=== PATIENT | male | born 1940 | race Caucasian/White ===

== ENCOUNTER 2016-07-01 06:20 | Day surgery (SDC) | payer OTHER ==
[~2016-07-01] VITALS: Ht 182.9 cm; Wt 122.1 kg
[~2016-07-01 06:20] MED LIST: AMOX500T2 PO; ASPI81TA82 PO; BENI40TA30 PO; FISH120014 PO; GUAI600 PO; LEVO75TA3 PO; PHEN100 PO; ROSU40 PO; TAB-TAB PO; VITA-13 PO
[2016-07-01 07:01] VITALS: BP 156/79; PULSE 66; RESP 18; TEMP 98.2; O2SAT 97
[2016-07-01] MEDS ORDERED: COQ1200C PO (07:10)
[2016-07-01] MEDS ORDERED: LEVO75TA3 PO (07:10)
[2016-07-01] MEDS ORDERED: [UNRECOGNIZED DRUG - CODE] PO (07:10)
[2016-07-01] MEDS ORDERED: MULT1TAB84 PO (07:10)
[2016-07-01] MEDS ORDERED: BENI40TA3 PO (07:10)
[2016-07-01] MEDS ORDERED: FISH1000 PO (07:10)
[2016-07-01] MEDS ORDERED: ROSU1TAB8 PO (07:10)
[2016-07-01] MEDS ORDERED: OCUVTAB PO (07:10)
[2016-07-01] MEDS ORDERED: ASPI1TAB69 PO (07:10)
[2016-07-01] MEDS ORDERED: SODIUM CHLORID 0.9% 500 ML IV PRN (07:15)
[2016-07-01] MEDS ORDERED: LACTATED RINGER'S 1000 ML IV PRN (07:15)
[2016-07-01] MEDS ORDERED: SODIUM CHLORID 0.9% 500 ML INJ 500 ML IV SCH (07:15)
[2016-07-01] MEDS ORDERED: CHLORHEXIDINE GLUCONATE 2 % 1 PACK (2 CLOTHS) TOPICAL PRN (07:15)
[2016-07-01] MEDS ORDERED: INSULIN HUMAN REGULAR 1,000 UNITS/10 ML VIAL SQ PRN (07:15)
[2016-07-01] MEDS ORDERED: LORazepam 1 MG TAB SL SCH (07:15)
[2016-07-01] MEDS ORDERED: METOPROLOL TARTRATE 25 MG TAB PO PRN (07:15)
[2016-07-01] MEDS ORDERED: POVIDONE IODINE 5% (ANTISEPSIS KIT) 4 APPLICATIONS EACH NARE PRN (07:15)
[2016-07-01] MEDS ORDERED: ISOPROTERENOL HCL 1 MG/5 ML AMP ONE (07:30)
[2016-07-01] MEDS ORDERED: MIDAZOLAM HCL 2 MG/2 ML VIAL ONE (07:31)
[2016-07-01 08:31] LABS: AUTOMATED NEUTROPHIL # 3.4 TH/MM3 (1.8-7.7); BASOPHIL # 0.1 TH/MM3 (0-0.2); BASOPHIL % 1.1 % (0.0-2.0); EOSINOPHIL # 0.2 TH/MM3 (0-0.4); EOSINOPHIL % 3.7 % (0.0-4.0); HEMATOCRIT 39.1 % (39.0-51.0); HEMO FLAGS DIFF FINAL; LYMPH % 29.7 % (9.0-44.0); MEAN CELL VOLUME 91.3 FL (80.0-100.0); MEAN CORPUSCULAR HEMOGLOBIN 31.7 PG (27.0-34.0); MEAN CORPUSCULAR HGB CONC 34.7 % (32.0-36.0); MONO % 14.5 % (0.0-8.0); PLATELET COUNT 143 TH/MM3 (150-450); RED BLOOD COUNT 4.28 MIL/MM3 (4.50-5.90); RED CELL DISTRIBUTION WIDTH 13.9 % (11.6-17.2); WHITE BLOOD COUNT 6.7 TH/MM3 (4.0-11.0)
[2016-07-01 08:39] LABS: BICARBONATE 24.3 MEQ/L (21.0-32.0)
[2016-07-01] MEDS ORDERED: METOPROLOL TARTRATE 5 MG/5 ML VIAL ONE (08:39)
[2016-07-01 08:42] LABS: APTT (PATIENT) 27.5 SEC (24.3-30.1); PROTHROMBIN TIME - PATIENT 10.5 SEC (9.8-11.6)
[2016-07-01] MEDS ORDERED: APIX5TAB PO (08:57)
[2016-07-01] MEDS ORDERED: LIDOCAINE HCL 1% 50 ML VIAL INFIL PRN (09:00)
[2016-07-01] MEDS ORDERED: METOCLOPRAMIDE HCL 10 MG/2 ML VIAL IV PRN (09:00)
[2016-07-01] MEDS ORDERED: NON-FORMULARY DRUG (Omega-3 Fatty Acids (Fish Oil) 1,000 MG) PO SCH (09:00)
[2016-07-01] MEDS ORDERED: ATROPINE SULFATE 1 MG/ML VIAL IV PRN (09:00)
[2016-07-01] MEDS ORDERED: SODIUM CHLOR 0.9% 250 ML INJ 250 ML IV PRN (09:00)
[2016-07-01] MEDS ORDERED: LORazepam 2 MG/ML VIAL IV PRN (09:00)
[2016-07-01] MEDS ORDERED: NON-FORMULARY DRUG (Coenzyme Q10 (Ubidecarenone) (Coq10) 200 MG) PO SCH (09:00)
[2016-07-01] MEDS ORDERED: oxyCODONE/ACETAMINOPHEN 5 MG/325 MG TAB PO PRN ×2 (09:00)
[2016-07-01] MEDS ORDERED: ONDANSETRON HCL 4 MG/2 ML VIAL IV PRN (09:00)
--- NOTE | 2016-07-01 09:51 | MA ---
cc: RUPERT DESAI M.D. DATE: 07/01/2016 PROCEDURE PERFORMED Electrophysiology study, CS cannulation, repeat electrophysiology study on Isuprel infusion. INDICATION Mr. Carolina is a 75-year-old gentleman with recurrent episode of supraventricular tachyarrhythmia, palpitations, symptomatic, referred for electrophysiology study and ablation. The risks, the nature and the benefit of the procedure are clearly stated to him. The risks include pneumothorax, cardiac perforation, stroke, need for open heart surgery and even . The patient understood and agreed to proceed. PROCEDURE After written informed consent was obtained, the patient was brought to the EP lab where he was prepped and draped in the usual sterile fashion. Conscious sedation was initiated and maintained throughout the procedure by anesthesiologist. Once sedation was verified, the right and left inguinal area was anesthetized with 2% Xylocaine. Using modified Seldinger technique, the left femoral vein was cannulated on three occasions, three guidewires were advanced. Over the wire three 5-Ghanaian Hemaquet were advanced. Then the right femoral vein was cannulated on two occasions, two guidewires were advanced. Over the wires 6 and an 8-Ghanaian Hemaquet were advanced. Then under fluoroscopic guidance through 5 and 6-Ghanaian Hemaquet, four 5-Ghanaian Camron curved quadripolar electrophysiology catheters were advanced was placed around the His, upper right atrium, coronary sinus and right ventricular apex. Basic interval was measured, they were within normal limits. At this point atrial pacing protocol was performed. Atrial pacing protocol consists of incremental atrial pacing as well as program stimulation with 110 cycle length and up to 20 excess stimuli delivered. During atrial pacing protocol atrial fibrillation was induced. Also supraventricular tachyarrhythmia of intracardiac arteries of atrial tachycardia, possible pulmonary vein tachyarrhythmia was induced. He was paced terminated. Then ventricular pacing protocol was performed. There was VA conduction. It was concentric and prolonged. Then Isuprel infusion was initiated. Atrial pacing protocol was repeated again. During Isuprel infusion the patient went into atrial fibrillation on multiple occasion. At that point the procedure was complete. All catheters were removed. The patient has atrial fibrillation, pulmonary vein tachyarrhythmia, he also has sleep apnea, obesity, a high blood pressure over 74. At this point the patient will need anticoagulation before atrial fibrillation ablation and pulmonary vein isolation. No incident report. The patient tolerated the procedure. Blood loss was minimal. 1. Electrocardiogram. At baseline the patient was in sinus. Postprocedure electrocardiogram was unchanged. 2. Basic interval. Base cycle length was around 780. AH at 100 and HV around 60 milliseconds. 3. Atrial pacing protocol. Wenckebach of the node was around 420 milliseconds. ERP of the node cannot be reached because the patient went on and off into atrial fibrillation. 4. Ventricular pacing protocol. There was VA conduction, it was concentric. CONCLUSION Atrial fibrillation, pulmonary vein tachyarrhythmia. COMMENT AND RECOMMENDATION As mentioned before, the gentleman is going to be discharged home. Eliquis will be initiated. The patient will be anticoagulated and A_ ablation will be scheduled for another day. MD JARROD Mckeon/TLL /9:01 AM /9:29 AM
[2016-07-01] MEDS ORDERED: LEVOTHYROXINE SODIUM 75 MCG TAB PO SCH (12:00)
[2016-07-01] MEDS ORDERED: BACITRACIN OINT 0.9 GM PKT TOP ONE (12:00)
[2016-07-01] MEDS ORDERED: ASPIRIN EC 81 MG TABEC PO SCH (12:00)
[2016-07-01] MEDS ORDERED: MULTIVITAMIN-OPHTHALMIC 1 TAB PO SCH (12:15)
[2016-07-01] MEDS ORDERED: MULTIVITAMINS/MINERALS THERAPEUTIC TAB PO SCH (12:15)
[2016-07-01] MEDS ORDERED: LOSARTAN 50 MG TAB PO SCH (13:00)
[2016-07-01] MEDS ORDERED: NIACIN 500 MG EXTENDED RELEASE TAB PO SCH (13:00)
[2016-07-01] MEDS ORDERED: ATORVASTATIN 40 MG TAB PO SCH (13:00)
--- NOTE | 2016-07-01 16:01 | EKG ---
Date Performed: 07/01/2016 Time Performed: 10:18:44 PTAGE: 75 years EKG: Probable Atrial fibrillation. Poor R wave progression - probable normal variant Abnormal EC G COMPARED TO PRIOR ELECTROCARDIOGRAM, Probable atrial fibrillation appears to have replaced Sinus rh ythm . PREVIOUS TRACING : 07/01/2016 07.21 DOCTOR: Moody Rice Interpretating Date/Time 07/01/2016 15:59:35
--- NOTE | 2016-07-01 16:05 | EKG ---
Date Performed: 07/01/2016 Time Performed: 07:15:28 PTAGE: 75 years EKG: Sinus rhythm . Poor R wave progression - probable normal variant Borderline ECG NO PREVIOUS TRACING DOCTOR: Moody Rice Interpretating Date/Time 07/01/2016 16:03:45
== END 2016-07-01 12:22 | disposition home or self-care (01) ==
LOC: HDOC 06:20 → HDIC 06:21 → HDOC 12:22
PROVIDERS: ATTEND Internal Medicine Interventional Cardiology
DX: I48.91 Unspecified atrial fibrillation (principal); I47.1 Supraventricular tachycardia; I25.10 Atherosclerotic heart disease of native coronary artery without angina pectoris; I10 Essential (primary) hypertension
CPT/HCPCS: 00537; 80048; 85025; 85610; 85730; 86850; 86900; 86901; 93005; 93613; 93620; 93623; C1730; C1732; J2250; J3010

== ENCOUNTER 2016-07-15 06:56 | Day surgery (SDC) | payer OTHER ==
[2016-07-15] VITALS (9 sets, daily range): BP systolic 120–152; BP diastolic 56–79; PULSE 18–85; RESP 17–20; TEMP 97.8–98.7; O2SAT 95–97
[~2016-07-15] VITALS: Ht 182.9 cm; Wt 116.6 kg
[~2016-07-15 06:56] MED LIST changes: -AMOX500T2 PO; +APIX5TAB PO; -ASPI81TA82 PO; +BENI40TA3 PO; -BENI40TA30 PO; +COQ1200C PO; +FISH1000 PO; -FISH120014 PO; -GUAI600 PO; +MULT1TAB84 PO; +OCUVTAB PO; -PHEN100 PO; +ROSU1TAB8 PO; -ROSU40 PO; -TAB-TAB PO; -VITA-13 PO; +[UNRECOGNIZED DRUG - CODE] PO
[2016-07-15] MEDS ORDERED: INSULIN HUMAN REGULAR 1,000 UNITS/10 ML VIAL SQ PRN (07:30)
[2016-07-15] MEDS ORDERED: METOPROLOL TARTRATE 25 MG TAB PO PRN (07:30)
[2016-07-15] MEDS ORDERED: POVIDONE IODINE 5% (ANTISEPSIS KIT) 4 APPLICATIONS EACH NARE PRN (07:30)
[2016-07-15] MEDS ORDERED: CHLORHEXIDINE GLUCONATE 2 % 1 PACK (2 CLOTHS) TOPICAL PRN (07:30)
[2016-07-15] MEDS ORDERED: LACTATED RINGER'S 1000 ML IV PRN (07:30)
[2016-07-15] MEDS ORDERED: SODIUM CHLORID 0.9% 500 ML IV PRN (07:30)
[2016-07-15] MEDS ORDERED: SODIUM CHLORID 0.9% 500 ML INJ 500 ML IV SCH (07:30)
[2016-07-15] MEDS ORDERED: LORazepam 1 MG TAB SL SCH (07:30)
[2016-07-15] MEDS ORDERED: ASPI1TAB69 PO (08:10)
[2016-07-15 08:25] LABS: AUTOMATED NEUTROPHIL # 5.1 TH/MM3 (1.8-7.7); BASOPHIL % 0.4 % (0.0-2.0); EOSINOPHIL % 0.6 % (0.0-4.0); HEMATOCRIT 39.6 % (39.0-51.0); HEMO FLAGS DIFF FINAL; LYMPH % 26.6 % (9.0-44.0); LYMPHOCYTE # 2.3 TH/MM3 (1.0-4.8); MEAN CELL VOLUME 91.2 FL (80.0-100.0); MEAN CORPUSCULAR HEMOGLOBIN 31.1 PG (27.0-34.0); MEAN CORPUSCULAR HGB CONC 34.1 % (32.0-36.0); NEUT % 59.4 % (16.0-70.0); PLATELET COUNT 221 TH/MM3 (150-450); RED BLOOD COUNT 4.34 MIL/MM3 (4.50-5.90); RED CELL DISTRIBUTION WIDTH 13.8 % (11.6-17.2); WHITE BLOOD COUNT 8.6 TH/MM3 (4.0-11.0)
[2016-07-15 08:32] LABS: PROTHROMBIN TIME - PATIENT 10.9 SEC (9.8-11.6)
[2016-07-15 08:35] LABS: APTT (PATIENT) 22.4 SEC (24.3-30.1)
[2016-07-15 08:42] LABS: BICARBONATE 22.4 MEQ/L (21.0-32.0); POTASSIUM 3.8 MEQ/L (3.5-5.1)
[2016-07-15] MEDS ORDERED: PROPOFOL 200 MG/20 ML AMP IV ONE (09:16)
[2016-07-15] MEDS ORDERED: PROTAMINE SULFATE 50 MG/5 ML VIAL ONE (09:20)
[2016-07-15] MEDS ORDERED: ISOPROTERENOL HCL 1 MG/5 ML AMP ONE (09:20)
[2016-07-15] MEDS ORDERED: HEPARIN-D5W INJ 250 ML ONE (09:20)
[2016-07-15] MEDS ORDERED: fentaNYL CITRATE 250 MCG/5 ML AMP ONE ×2 (09:20→12:50)
[2016-07-15] MEDS ORDERED: HEPARIN SODIUM - IV 10,000 UNITS/10 ML VIAL ONE (09:21)
[2016-07-15] MEDS ORDERED: LEVOFLOXACIN 500 MG PREMIX INJ 100 ML IV ONE (09:25)
[2016-07-15] MEDS ORDERED: HEPARIN-NS/PF INJ 500 ML ONE (09:32)
--- NOTE | 2016-07-15 12:14 | PD.CARD ---
Atrial Fibrillation Ablation PROCEDURE DATE: July 15, 2016 PROCEDURES PERFORMED: 1. Electrophysiology study on Isuprel infusion 2. CS cannulation 3. 3-D mapping 4. Transseptal approach 5. Right and left heart catheterization 6. Intracardiac echo 7. Radiofrequency ablation of atrial fibrillation 8. Pulmonary vein isolation 9. Posterior wall ablation 10. Mitral line creation 11. Anterior wall ablation INDICATIONS FOR THE PROCEDURE Mr. Carolina is a 75-year-old male with atrial fibrillation very symptomatic, on anticoagulation referred for electrophysiology study and ablation. The risks, the nature and the benefits of the procedure were clearly stated to him. The risks include pneumothorax, cardiac perforation, stroke, need for open heart surgery and even . The patient understood and agreed to proceed. DESCRIPTION OF THE PROCEDURE IN DETAIL After written informed consent was obtained prior to esophageal echocardiogram, the patient was kept on the table where he was prepped and draped in the usual sterile fashion. Conscious sedation was initiated and maintained throughout the procedure by the anesthesiologist. Once sedation was verified, the right and left inguinal areas were anesthetized with 2% Xylocaine. Using modified Seldinger technique, the left femoral vein was cannulated on three occasions, three guidewires were advanced. Over the wire a 6, 7 and a 10-[place] Hemaquet were advanced. Then the left femoral artery was cannulated on one occasion, one guidewire was advanced. Over the wire a 4-[place] Hemaquet was advanced. Then the right femoral vein was cannulated on one occasion, one guidewire was advanced. Over the wire a 8-[place] Hemaquet was advanced. Then under fluoroscopic guidance through the 6 and 7-[place] Hemaquet, two 5-[place] Camron curved quadripolar electrophysiology catheters were advanced and placed around the His as well as coronary sinus. Basic interval was measured. The patient was in sinus. Through the 10-[place] Hemaquet, a Cordis Wright AcuNav intracardiac echo catheter was advanced and placed at the right atrium. Multiple view was obtained. There is pericardial effusion, pulmonary vein was seen, atrial septal was visualized. Then the 8-[place] Hemaquet in the right femoral vein was exchanged for Agilis transseptal sheath that was placed all the way to the superior vena cava. Through the sheath a Edita needle was advanced, then the sheath, the dilator and the needle were progressed until foci engaged. Once engaged, the needle was advanced. RF was delivered for 2 seconds. I was able to cross into the left atrium. Once the needle crossed, the dilator was advanced. Once the dilator crossed, the sheath was advanced. Once the sheath crossed, the dilator and the needle were removed. At this point I did flood the system and fluid movement was seen in the left atrium the indicates the sheath is in good position. The patient already received 10,000 units of heparin. The goal is to keep an ACT around 350 during ablation. Then through the sheath a [facility]. Tadeo 20 pulse circumferential catheter was advanced. Using [employer] endocardial solution mapping system, a two-dimensional configuration of the left atrium was obtained. Points were taken at the left superior and inferior veins, right superior and inferior veins, mitral valve, and appendages. Then through the sheath a St. Tadeo TactiCath 65cm 3.5mm irrigated tipped mapping and radiofrequency ablation catheter was advanced. Esophageal probe was placed temperature monitoring during ablation. When it increased to 0.5 degrees Celsius above baseline, I moved to a different area of the atrium. First I did isolate the left superior and inferior vein. Posterior wall was ablated. lateral wall was ablated. Mitral line was created. Then the right superior and inferior veins were isolated. Anterior wall was ablated. I did remap the atrium. At that point I did advance the circumferential catheter again into the vein. There was no signal into the vein , pacing from the vein showed no conduction to the atrium. Isuprel infusion was initiated at 10 mcg for 15 minutes. No tachyarrhythmia was induced, post Isuprel no tachyarrhythmia was induced. At that point the procedure was complete. All catheters were removed, atrial septal sheath was exchanged for 9- [place] Hemaquet, intracardiac echo showed no pericardial effusion. There is still good flow in the pulmonary vein. The patient is going to be transferred to the recovery room. No incident report. The patient tolerated the procedure. Blood loss was minimal. FINDINGS 1. Electrocardiogram: At baseline the patient was in sinus rhythm. Post procedure electrocardiogram was unchanged. 2. Basic interval: Base cycle length was around 722. AH at 80 and HV at 62 milliseconds. 3. Tachyarrhythmia: Atrial fibrillation was mapped and ablated. The ablation was successful. CONCLUSION Successful electrophysiology study, mapping, radiofrequency ablation of atrial fibrillation, pulmonary vein isolation, posterior ablation, mitral line creation. COMMENTS AND RECOMMENDATIONS The patient is going to be transferred to the telemetry unit. Will be observed and when stable can be discharged home. Adri Albrecht MD July 15, 2016 12:14
[2016-07-15] MEDS ORDERED: SODIUM CHLOR 0.9% 250 ML INJ 250 ML IV PRN (12:15)
[2016-07-15] MEDS ORDERED: ONDANSETRON HCL 4 MG/2 ML VIAL IV PRN (12:15)
[2016-07-15] MEDS ORDERED: BACITRACIN OINT 0.9 GM PKT TOP ONE (12:15)
[2016-07-15] MEDS ORDERED: LIDOCAINE HCL 1% 50 ML VIAL INFIL PRN (12:15)
[2016-07-15] MEDS ORDERED: oxyCODONE/ACETAMINOPHEN 5 MG/325 MG TAB PO PRN ×2 (12:15)
[2016-07-15] MEDS ORDERED: ATROPINE SULFATE 1 MG/ML VIAL IV PRN (12:15)
[2016-07-15] MEDS ORDERED: LORazepam 2 MG/ML VIAL IV PRN (12:15)
[2016-07-15] MEDS ORDERED: METOCLOPRAMIDE HCL 10 MG/2 ML VIAL IV PRN (12:15)
[2016-07-15] MEDS ORDERED: DO NOT ADM ANY ANTICOAGULANT DRUGS PRN (12:32)
[2016-07-15] MEDS ORDERED: MORPHINE SULFATE 4 MG/ML INJ ONE (12:50)
[2016-07-15] MEDS ORDERED: BACITRACIN TOP OINT 15 GM TUBE ONE (12:53)
--- NOTE | 2016-07-15 14:30 | CATHPROC ---
Cnekt HIS Report Study Information Study Number Admission Scheduled Start Study Start [id number] 07/15/2016 07/15/2016 Jul 15 2016 8:47AM Referring Institution Admit Source Facility Department 1 Other [facility] - Customer Equipment Engineer Physician and Clinical Staff Initial Adri South Archery Instructor Bonnie Loredo RCIS Archery Instructor Joana Coelho,GENERAL HELPER TECH2 Other Sarita Stallworth,INES Other Anesthesia, RETAIL EQUIPMENT ASSOCIATE Recorder Sole Henry RN Recorder Sarita Stallworth,INES Scrub Alexey Salgado,RT(R) Procedures Performed Procedure Location (Site) Vessel Name Ablation Procedure ICE CATHETER INSERT RA Atruim RF Ablation LT. ATRIUM LT. ATRIUM Equipment Time Stemhole Borer And Topper Description Size Mfg Part Number Used/Scraped NEEDLE, TRANSSEPTAL NRG 98 10:09 [facility] [id number] Used C1 [employer]/ EP 10:09 KIT, TRANSDUCER / AFIB [id number] Used PACER COVER, TRANSDUCER CABLE 10:09 [employer] 612-113 Used ACUNAV 10:09 CORDIS/PACER SHEATH, FR10 JEAN 11CM FR 10 [id number] Used 10:09 CORDIS/PACER SHEATH, FR9 JEAN 11CM FR 9 [id number] Used 10:09 [employer]ES PACK, CCL CUSTOM * [id number] Used 10:09 [employer] PACER MORILLO, LIMB * [id number] Used [id number] 10:09 [employer] MEDICAL SHEATH, FR4.5 PRELUDE 11CM FR 4.5 Used [id number] 10:09 NAMIC TUBING, HIGH PRESSURE 48" 48" [id number] Used 10:09 NAMIC TUBING, HIGH PRESSURE 48" 48" [id number] Used 10:10 NAMIC TUBING, HIGH PRESSURE 48" 48" [id number] Used 10:09 [employer] BL[employer],WARM AIR CCL * [id number] Used CATHETER, TACTICATH ABLAT [id number] 10:09 [facility] [employer] [employer] Used 65 BUNDLE BUNDLE CATHETER, FR7 OPTIMA SPIRAL 10:09 [facility] FR7 [id number] Used BUNDLE 10:19 [facility] CATHETER, JSN, QUAD BUNDLE FR 5 [id number] Used 10:19 [facility] [employer] CATHETER, JSN, QUAD BUNDLE FR 5 [id number] Used 10:37 [facility] CATHETER, JSN, QUAD BUNDLE FR 5 [id number] Used 10:09 [facility] [employer] CATHETER, JSN, QUAD BUNDLE FR 5 [id number] Used 10:09 [facility] [employer] CATHETER, JSN, QUAD BUNDLE FR 5 [id number] Used 10:09 [facility] [employer] ELECTRODE KIT, NOMI X SURFACE * [id number] Used 10:28 [facility] [employer] LIVEWIRE, QUAD, MED SWEEP FR 6 [id number] Used SET, [place] TUBING 10:09 [facility] [employer] [id number] Used BUNDLE 10:09 [facility] [employer] SHEATH, EPS, FR6 FAST CATH FR 6 [id number] Used 10:09 [facility] [employer] SHEATH, EPS, FR7 FAST CATH FR 7 [id number] Used 10:09 [facility] SHEATH, EPS, FR8 FAST CATH FR 8 [id number] Used SHEATH, FR8.5 STEERABLE SM 10:09 [facility] 71CM [id number] Used 71CM BUNDLE CATHETER, ACUNAV FR10 ICE 10:18 NADEEM FR 10 [id number] Used (NADEEM) [facility], ELECTROSURGICAL 10:09 * [id number] Used SURGICAL GROUNDING (BLUE) Labs Hgb (g/dl) Hct (%) RBC (MIL/MM3) WBC (l/cumm) Platelets (thousands) 12.00-18.00 37.00-55.00 4.80-6.20 4.80-10.80 140.00-450.00 13.5 39.6 4.3 8.6 221 Glucose (mg/dl) BUN (mg/dl) Creatinine (mg/dl) BUN:Creatinine (1:x) 60.00-110.00 8.00-20.00 0.10-9.00 10.00-20.00 90 38 1.3 29.2 Na (meq/l) K (meq/l) 138.00-146.00 3.80-5.10 141 3.8 INR (PTT:PT) 0.50-2.00 1 Medication Medication Total Dose (Bolus/Oral) Medication Total Dosage/Unit 1% XYLOCAINE 40 mL HEPARIN 00301 units LASIX 40 mg PROTAMINE 40 mg Medications (Bolus/Oral) Medication Time Given Dosage/Unit Administered By Reason 1% XYLOCAINE 07/15/2016 10:09:24 AM 20 mL Adri Albrecht 20 mL 1% XYLOCAINE given in lab by Adri Albrecht in Left Groin via Subcutaneous. Ordered by Junior Albrecht 1% XYLOCAINE 07/15/2016 10:12:38 AM 20 mL Adri Albrecht 20 mL 1% XYLOCAINE given in lab by Adri Albrecht in Right Groin via Subcutaneous. Ordered by Deja Albrecht. HEPARIN 07/15/2016 10:37:28 AM 5000 units Anesthesia, RETAIL EQUIPMENT ASSOCIATE 5000 units HEPARIN given in lab by Anesthesia, RETAIL EQUIPMENT ASSOCIATE via Peripheral IV. Ordered by Adri Albrecht. HEPARIN 07/15/2016 10:55:19 AM 1000 units Anesthesia, RETAIL EQUIPMENT ASSOCIATE 1000 units HEPARIN given in lab by Anesthesia, RETAIL EQUIPMENT ASSOCIATE via Peripheral IV. Ordered by Adri Albrecht. HEPARIN 07/15/2016 11:12:58 AM 2000 units Anesthesia, RETAIL EQUIPMENT ASSOCIATE 2000 units HEPARIN given in lab by Anesthesia, RETAIL EQUIPMENT ASSOCIATE via Peripheral IV. Ordered by Adri Albrecht. HEPARIN 07/15/2016 11:28:48 AM 3000 units Anesthesia, RETAIL EQUIPMENT ASSOCIATE 3000 units HEPARIN given in lab by Anesthesia, RETAIL EQUIPMENT ASSOCIATE via Peripheral IV. Ordered by Adri Albrecht. PROTAMINE 07/15/2016 12:06:59 PM 40 mg Anesthesia, RETAIL EQUIPMENT ASSOCIATE 40 mg PROTAMINE given in lab by Anesthesia, RETAIL EQUIPMENT ASSOCIATE. Ordered by Adri Albrecht. LASIX 07/15/2016 12:07:18 PM 40 mg Anesthesia, RETAIL EQUIPMENT ASSOCIATE 40 mg LASIX given in lab by Anesthesia, RETAIL EQUIPMENT ASSOCIATE via Peripheral IV. Ordered by Adri Albrecht. Medication (Drip) Medication Time Given Dosage/Unit Concentration/Unit Diluent (ml) Solution HEPARIN DRIP 07/15/2016 10:56:36 AM 1000 units/hr 33257 units 250 D5W 1000 units/hr HEPARIN DRIP given in lab by Anesthesia, RETAIL EQUIPMENT ASSOCIATE via Peripheral IV. Pump/Drip Flow = 10 ml /hr using D5[place] [address] units in 250 ml. Ordered by Adri Albrecht. ISUPREL 07/15/2016 11:48:12 AM 20 mcg/min 1 mg 250 NaCl .9 20 mcg/min ISUPREL given in lab by Anesthesia, RETAIL EQUIPMENT ASSOCIATE via Peripheral IV. Pump/Drip Flow = 300 ml/hr usi ng NaCl .9 with a concentration of 1 mg in 250 ml. Ordered by Adri Albrecht. LEVAQUIN 07/15/2016 9:44:52 AM 100 mL/hr 500 100 NaCl .9 100 mL/hr LEVAQUIN given by Anesthesia, RETAIL EQUIPMENT ASSOCIATE via Peripheral IV. Pump/Drip Flow = 0 ml/hr using NaCl . 9 with a concentration of 500 in 100 ml. Initial Case Assessment Cardiovascular HR Rhythm NIBP Chest Pain 63 SR 113/75 0 Edema Present Skin color Skin None Normal Warm Dry Final Case Assessment Cardiovascular HR Rhythm NIBP Chest Pain 92 sr 129/58 0 Edema Present Skin color Skin None Normal Warm Dry Neurological State Oriented to time-place- Lethargic Moves all extremities person Respiration - General Respiration Rate SpO2 (%) O2 (lpm) (B/min) 16 97 4 Chronological Log Time Study Chronological Log 9:16:08 Patient arrived via Bed. 9:16:08 Patient Name, D.O.B, / Armband Verified By R.N. 9:22:50 Consent signed by the physician and the patient and verified by the Customer Equipment Engineer staff. 9:22:51 Pre-op and post- op instructions given; patient acknowledges understanding of instructions. 9:22:52 Verbal Stimulation=2 Physical Stimulation=2 Airway=2 Respiration=2 TOTAL=8. (0=absent, 1=li mited, 2=present) 9:22:53 Anesthesia at bedside. Assumes care of patient. 9:22:55 Patient has been NPO for More than 6Hrs. 9:22:55 Skin Breakdown, none noted per pt. 9:22:56 Patient Warmer Placed on the Table. 9:22:57 Disposable Defibrillator Pads Placed On Patient. 9:23:00 Rosa Prominences Protected 9:23:01 A #20 IV was noted in the Antecubital (right). Grade = 0 9:23:02 A # 20 IV was noted in the Forearm (left). Grade = 0 9:23:03 History and physical on the chart or being dictated. Assessment: Initial Case, HR=63 BPM, Rhythm=SR, RSUJ=926/75 mmhg, Chest Pain=0, Edema=None, Col or=Normal, 9:25:52 Skin = Warm, Dry 9:25:59 See anesthesia flow sheet for all vital signs and medications given. 9:32:40 Table restraints applied according to hospital policy 9:42:56 Melgar catheter, 14fr, inserted x1 attempt using sterile technique. Clear yellow urine obtain ed, no complications. 9:43:56 Right groin prepped with 2% chlorhexidine, and with a 3 min. waiting time. 100 mL/hr LEVAQUIN given by Anesthesia, RETAIL EQUIPMENT ASSOCIATE via Peripheral IV. Pump/Drip Flow = 0 ml/hr using NaCl .9 with a 9:44:52 concentration of 500 in 100 ml. 9:53:41 MD paged 9:53:48 MD responded 10:02:23 MD arrived. 10:03:29 Reference ECG taken Time Out. Correct patient, procedure, procedure equipment, site and side verified with physicia n present. Time 10:05:03 concurred by MD, individual staff and RETAIL EQUIPMENT ASSOCIATE. Time Out #2 - Consents verified, patient in correct position, all results are labled and displa yed, safety precautions 10:05:04 taken, antibiotics administered. Time out concurred by MD, individual staff and RETAIL EQUIPMENT ASSOCIATE in procedu re 10:05:24 Case Start 10:06:07 JADEN in progress 10:06:53 Pressure channel 2 zeroed. 10:08:43 Jaden complete 10:09:24 20 mL 1% XYLOCAINE given in lab by Adri Albrecht in Left Groin via Subcutaneous. Ordered by Adri Albrecht. 10:10:16 Vascular access was obtained in the Fem Vein (left). 10:10:18 Vascular access was obtained in the Fem Vein (left). 10:10:18 Vascular access was obtained in the Fem Vein (left). 10:10:46 Vascular access was obtained in the Fem Art (left). A SHEATH, FR4.5 PRELUDE 11CM FR 4.5 was advanced into the Fem Art (left) using the Modified Sabrina kameron technique. 10:11:09 0.9%NS pressure bag connected. 10:11:55 A SHEATH, EPS, FR6 FAST CATH FR 6 was advanced into the Fem Vein (left) using the Modified Seldinger technique. 10:12:07 A SHEATH, EPS, FR7 FAST CATH FR 7 was advanced into the Fem Vein (left) using the Modified Seldinger technique. 10:12:13 A SHEATH, FR10 JEAN 11CM FR 10 was advanced into the Fem Vein (left) using the Modified S crystaldinger technique. 10:12:38 20 mL 1% XYLOCAINE given in lab by Adri Albrecht in Right Groin via Subcutaneous. Ordered b Adri Maria. 10:12:52 Vascular access was obtained in the Fem Vein (right). 10:12:58 A SHEATH, EPS, FR8 FAST CATH FR 8 was advanced into the Fem Vein (right) using the Modified Seldinger technique. 10:13:40 Beginning of case Body Temp__36.1 . A CATHETER, JSN, QUAD BUNDLE FR 5 was advanced vis Fem Vein (left) and placed in the CS. Placem ent was visually 10:25:10 confirmed under fluoroscopy. A CATHETER, JSN, QUAD BUNDLE FR 5 was advanced vis Fem Vein (left) and placed in the CS. Placem ent was visually 10:26:17 confirmed under fluoroscopy. Difficulty accessing CS, more than one Quad used. Livewire 10:33:00 Livewire removed. A CATHETER, JSN, QUAD BUNDLE FR 5 was advanced vis Fem Vein (left) and placed in the CS. Placem ent was visually 10:34:45 confirmed under fluoroscopy. A CATHETER, JSN, QUAD BUNDLE FR 5 was advanced vis Fem Vein (left) and placed in the HIS. Place ment was 10:37:09 visually confirmed under fluoroscopy. 10:37:28 5000 units HEPARIN given in lab by Anesthesia, RETAIL EQUIPMENT ASSOCIATE via Peripheral IV. Ordered by Junior Albrecht. 10:38:14 CATHETER, ACUNAV FR10 ICE ([employer]) FR 10 Was Postioned. A SHEATH, FR8.5 STEERABLE SM 71CM BUNDLE 71CM was exchanged in the Fem Vein (right). This was n ecessary in 10:38:31 order to accomodate a larger catheter. 10:39:01 Gregory in. 10:41:10 A eps was advanced to the right atrium and passed through the septal wall to the left atriu m. 10:41:26 Gregory out. A CATHETER, FR7 OPTIMA SPIRAL BUNDLE FR7 was advanced vis Fem Vein (right) and placed in the LA . Placement 10:41:37 was visually confirmed under fluoroscopy. Mapping in progress. 10:42:43 Activated Clotting Time Drawn 10:47:16 Mapping Catheter was removed 10:48:19 Activated Clotting Time re-drawn A CATHETER, TACTICATH ABLAT 65 BUNDLE was advanced vis LT. ATRIUM and placed in the LA. Placeme nt was 10:54:08 visually confirmed under fluoroscopy. 10:54:44 ACT (Normal Range 90-180) = 319 10:55:19 1000 units HEPARIN given in lab by Anesthesia, RETAIL EQUIPMENT ASSOCIATE via Peripheral IV. Ordered by Junior Albrecht. 1000 units/hr HEPARIN DRIP given in lab by Anesthesia, RETAIL EQUIPMENT ASSOCIATE via Peripheral IV. Pump/Drip Flow = 10 ml/hr using 10:56:36 D5[place] [address] units in 250 ml. Ordered by Adri Albrecht. 10:56:50 RF Ablation of the LT. ATRIUM with a CATHETER, TACTICATH ABLAT 65 BUNDLE. 11:06:11 Activated Clotting Time Drawn 11:11:36 ACT (Normal Range 90-180) = 311 11:12:58 2000 units HEPARIN given in lab by Anesthesia, RETAIL EQUIPMENT ASSOCIATE via Peripheral IV. Ordered by Junior Albrecht. 11:20:18 Activated Clotting Time Drawn 11:23:56 Ablation Catheter was removed A CATHETER, FR7 OPTIMA SPIRAL BUNDLE FR7 was advanced vis Fem Vein (right) and placed in the LA . Placement 11:24:21 was visually confirmed under fluoroscopy. 11:25:59 ACT (Normal Range 90-180) = 292 11:28:48 3000 units HEPARIN given in lab by Anesthesia, RETAIL EQUIPMENT ASSOCIATE via Peripheral IV. Ordered by Junior Albrecht. 11:35:40 Activated Clotting Time Drawn 11:37:09 Spiral catheter was removed 11:37:34 RF Ablation of the LT. ATRIUM with a CATHETER, TACTICATH ABLAT 65 BUNDLE. Ablation inprogr ess. 11:42:52 Ablation catheter was removed. 11:43:01 ACT (Normal Range 90-180) = 330 11:43:48 Mapping catheter back in. Mapping in progress. 11:45:48 Mapping catheter removed. 20 mcg/min ISUPREL given in lab by Anesthesia, RETAIL EQUIPMENT ASSOCIATE via Peripheral IV. Pump/Drip Flow = 300 ml/ hr using NaCl .9 11:48:12 with a concentration of 1 mg in 250 ml. Ordered by Adri Albrecht. 11:58:34 Isuprel stopped. 11:59:43 Catheters were removed. A SHEATH, FR9 JEAN 11CM FR 9 was exchanged in the Fem Vein (right). This was necessary in ord er to achieve 12:00:11 vascular hemostasis. 12:01:57 PACU called. Spoke to Zoey. 12:02:13 Bedside Report will be given. 12:04:40 EP Procedure was performed. 12:05:01 Ablation procedure performed: AFIB. 12:05:24 No case complications noted. 12:05:39 Defibrillator and ground pads removed. Skin intact. 12:05:43 End of case Body Temp__36.2 . 12:06:06 Cine recording checked. 12:06:59 40 mg PROTAMINE given in lab by Anesthesia, RETAIL EQUIPMENT ASSOCIATE. Ordered by Adri Albrecht. 12:07:18 40 mg LASIX given in lab by Anesthesia, RETAIL EQUIPMENT ASSOCIATE via Peripheral IV. Ordered by Adri Albrecht. 12:13:45 Activated Clotting Time Drawn 12:18:01 All sheaths sutured in place with 0.9ns attached at KVO. Sheaths will be pulled in holding . 12:18:47 ACT (Normal Range 90-180) = 170 12:19:16 Case End Assessment: Final Case, HR=92 BPM, Rhythm=sr, JSSL=558/58 mmhg, Chest Pain=0, Edema=None, Lamont r=Normal, Skin = Warm, Dry 12:22:03 Neurological: State=Lethargic, Ox3, PRICE Respiration: Resp=16 B/min, SpO2=97 %, O2=4 lpm 12:23:16 Patient moved to stretcher End Study - Contrast Media Used In Study Contrast Total Opened (mL) Total Used (mL) Total Wasted (mL) Unspecified 0 0 0 End Study - Maximum Contrast Load Max Contrast Load (mL) 448.4 End Study - Radiation Exposure Fluoro Time (minutes) 12.4 End Study - Patient Disposition Complications Transferred To Interventional Outcome No Telemetry Bed successful
[2016-07-15] MEDS: APIXABAN 5 MG TABLET PO SCH (21:35)
--- NOTE | 2016-07-15 22:39 | EKG ---
Date Performed: 07/15/2016 Time Performed: 07:43:18 PTAGE: 75 years EKG: Sinus rhythm Normal ECG NO PREVIOUS TRACING DOCTOR: Janak Montes De Oca Interpretating Date/Time 07/15/2016 22:39:09
--- NOTE | 2016-07-15 23:22 | EKG ---
Date Performed: 07/15/2016 Time Performed: 13:10:27 PTAGE: 75 years EKG: Sinus rhythm WITH OCCASIONAL SUPRAVENTRICULAR PREMATURE COMPLEXES BORDERLINE ECG PREVIOUS TRACING : 07/15/2016 07.43 Compared to previous tracing, PACs are now present. DOCTOR: Rafa Cantu Interpretating Date/Time 07/15/2016 23:22:41
[2016-07-16] VITALS (11 sets, daily range): BP systolic 115–135; BP diastolic 56–72; PULSE 52–89; RESP 18; TEMP 97.8–98.6; O2SAT 98–99
[2016-07-16] MEDS ORDERED: LEVOTHYROXINE SODIUM 75 MCG TAB PO SCH (06:00)
--- NOTE | 2016-07-16 08:26 | PD.CARD.PN ---
Subjective Subjective Remarks Feels better. Objective Medications Current Medications Medications (Trade) Dose Ordered Sig/Rut Route Start Time Stop Time Status Last Admin Sodium Chloride 500 ml @ 30 mls/hr [id number] IV 07/15/16 07:30 Lactated Ringer's 1,000 ml @ 30 mls/hr Q24H PRN IV 07/15/16 07:30 07/18/16 07:29 (NS 500 ml Inj) 500 ml @ 30 mls/hr [id number] PRN IV 07/15/16 07:30 07/18/16 07:29 (Percocet 5-325 Mg) 1 tab Q4H PRN PO 07/15/16 12:15 (Percocet 5-325 Mg) 2 tab Q4H PRN PO 07/15/16 12:15 (Ativan Inj) 0.5 mg UNSCH PRN IV 07/15/16 12:15 07/16/16 12:14 Atropine Sulfate 0.5 mg 0.5 mg UNSCH PRN IV 07/15/16 12:15 (NS 250 ml Inj) 250 ml @ 500 mls/hr ONCE PRN IV 07/15/16 12:15 07/16/16 12:14 (Reglan Inj) 10 mg Q4H PRN IV 07/15/16 12:15 (Zofran Inj) 4 mg Q4H PRN IV 07/15/16 12:15 (Xylocaine 1% Inj (50 ml)) 10 ml UNSCH PRN INFIL 07/15/16 12:15 07/16/16 12:14 (Eliquis) 5 mg BID PO 07/15/16 21:00 07/15/16 21:35 (Ecotrin Ec) 81 mg DAILY PO 07/16/16 09:00 (Synthroid) 75 mcg DAILY@06 PO 07/16/16 06:00 07/16/16 06:10 (Theragran M Tab) 1 tab DAILY PO 07/16/16 09:00 (Ocuvite) 1 tab DAILY PO 07/16/16 09:00 (Slo-Niacin) 500 mg DAILY PO 07/16/16 09:00 (Cozaar) 100 mg DAILY PO 07/16/16 09:00 (Lipitor) 40 mg DAILY PO 07/16/16 09:00 Miscellaneous Information ALL NURSING DEPARTME... UNSCH PRN .XX 07/15/16 12:32 07/16/16 12:31 Vital Signs / I&O Vital Signs Date Time Temp Pulse Resp B/P Pulse Ox O2 Delivery O2 Flow Rate FiO2 07/16/16 08:00 55 07/16/16 07:00 57 07/16/16 07:00 98.6 64 18 135/72 98 07/16/16 06:12 89 07/16/16 05:11 53 07/16/16 04:26 52 07/16/16 03:15 97.8 53 18 115/56 99 07/16/16 03:03 62 07/16/16 02:19 55 07/16/16 01:04 66 07/16/16 00:00 54 07/15/16 23:40 97.9 64 18 123/68 96 07/15/16 23:40 62 07/15/16 22:29 67 07/15/16 21:24 64 07/15/16 21:11 97.9 70 18 137/56 95 07/15/16 20:00 72 07/15/16 19:04 66 07/15/16 18:00 68 07/15/16 17:00 98.1 79 20 152/78 96 07/15/16 17:00 18 07/15/16 16:00 98.1 69 17 121/68 96 Room Air 07/15/16 15:00 98.1 66 17 128/71 96 Room Air 07/15/16 14:30 78 17 133/69 96 Room Air 07/15/16 14:00 84 17 136/76 94 Room Air 07/15/16 13:45 89 17 132/72 94 Room Air 07/15/16 13:30 82 17 134/71 95 Room Air 07/15/16 13:15 81 17 130/69 97 Room Air 07/15/16 13:00 84 17 119/58 97 Room Air 07/15/16 12:45 80 16 114/57 99 Room Air 07/15/16 12:36 97.6 85 16 121/59 99 Nasal Cannula 4 I/O 07/15/16 07/15/16 07/15/16 07/16/16 07/16/16 07/16/16 07:00 15:00 23:00 07:00 15:00 23:00 Intake Total 1125 ml 290 ml 1440 ml Output Total 2450 ml 1200 ml 1000 ml Balance -1325 ml -910 ml 440 ml Intake Oral 240 ml 1440 ml IV Total 325 ml 50 ml Other 800 ml Output Urine Total 1850 ml 1200 ml 1000 ml Estimated Blood Loss 600 ml Physical Exam GENERAL: Well-nourished, well-developed patient. SKIN: Warm and dry. Groin sites soft with no swelling or bleeding. HEAD: Normocephalic. EYES: No scleral icterus. No injection or drainage. NECK: Supple, trachea midline. No JVD or lymphadenopathy. CARDIOVASCULAR: Regular rate and rhythm without murmurs, gallops, or rubs. RESPIRATORY: Breath sounds equal bilaterally. No accessory muscle use. GASTROINTESTINAL: Abdomen soft, non-tender, nondistended. EXTREMITIES: No cyanosis, or edema. NEUROLOGICAL: Awake, alert, and oriented x 3. Non-focal. Assessment and Plan Problem List: (1) S/P ablation of atrial fibrillation Assessment and Plan: Groin sites stable. In NSR. DC home, f/u with Dr. Albrecht in 3 weeks per my d/w him. (2) Atrial fibrillation Assessment and Plan: NSR s/p ablation. Continue Eliquis. Problem Qualifiers (1) Atrial fibrillation: Qualified Code: I48.91 - Atrial fibrillation, unspecified type Terese Penny July 16, 2016 08:26
[2016-07-16] MEDS ORDERED: MULTIVITAMIN-OPHTHALMIC 1 TAB PO SCH (09:00)
[2016-07-16] MEDS ORDERED: NIACIN 500 MG EXTENDED RELEASE TAB PO SCH (09:00)
[2016-07-16] MEDS ORDERED: LOSARTAN 50 MG TAB PO SCH (09:00)
[2016-07-16] MEDS ORDERED: ASPIRIN EC 81 MG TABEC PO SCH (09:00)
[2016-07-16] MEDS ORDERED: NON-FORMULARY DRUG (Coenzyme Q10 (Ubidecarenone) (Coq10) 200 MG) PO SCH (09:00)
[2016-07-16] MEDS ORDERED: NON-FORMULARY DRUG (Omega-3 Fatty Acids (Fish Oil) 1,000 MG) PO SCH (09:00)
[2016-07-16] MEDS ORDERED: ATORVASTATIN 40 MG TAB PO SCH (09:00)
[2016-07-16] MEDS ORDERED: MULTIVITAMINS/MINERALS THERAPEUTIC TAB PO SCH (09:00)
[2016-07-16] MEDS: APIXABAN 5 MG TABLET PO SCH (09:06)
[2016-07-16 09:07] LABS: PROTHROMBIN TIME - PATIENT 11.4 SEC (9.8-11.6)
--- NOTE | 2016-07-16 11:47 | EKG ---
Date Performed: 07/16/2016 Time Performed: 06:27:18 PTAGE: 75 years EKG: Sinus bradycardia Normal ECG except for rate PREVIOUS TRACING : 07/15/2016 13.10 No significant change from previous tracing noted. DOCTOR: Rafa Cantu Interpretating Date/Time 07/16/2016 11:46:14
--- NOTE | 2016-07-20 17:43 | ETE ---
Study Study Date:07/15/2016 STUDY CONCLUSIONS SUMMARY - Left ventricle: The cavity size was normal. Wall thickness was normal. Systolic function was normal. The estimated ejection fraction was in the range of 60% to 65%. Wall motion was normal; there were no regional wall motion abnormalities. - Aortic valve: No evidence of vegetation. - Mitral valve: No evidence of vegetation. - Left atrium: No evidence of thrombus in the atrial cavity or appendage. No evidence of thrombus in the atrial cavity or appendage. - Right atrium: No evidence of thrombus in the atrial cavity or appendage. - Atrial septum: No defect or patent foramen ovale was identified. Echo contrast study showed no [id number] atrial level shunt, at baseline or with provocation. Echo contrast study showed no [id number] atrial level shunt, at baseline or with provocation. - Tricuspid valve: No evidence of vegetation. - Pulmonic valve: No evidence of vegetation. If LV function is below 40, please consider prescribing an ACEI or ARB or document rationale for non-use. PROCEDURE DATA Consent: The risks, benefits, and alternatives to the procedure were explained to the patient and informed consent was obtained. Procedure: Initial setup. The patient was brought to the laboratory in the fasting state. Intravenous access was obtained. Surface ECG leads and pulse oximetric signals were monitored. Sedation. Conscious sedation was administered by anesthesiology. Transesophageal echocardiography. Topical anesthesia was obtained using viscous lidocaine. A transesophageal probe was inserted by the attending show dog trainer. Image quality was good. Study completion: All IVs inserted during the procedure were removed. The patient tolerated the procedure well. There were no complications. Transesophageal echocardiography. 2D, complete spectral Doppler, and color Doppler. CARDIAC ANATOMY LEFT VENTRICLE: The cavity size was normal. Wall thickness was normal. Systolic function was normal. The estimated ejection fraction was in the range of 60% to 65%. Wall motion was normal; there were no regional wall motion abnormalities. AORTIC VALVE: Structurally normal valve. Trileaflet; normal thickness leaflets. Cusp separation was normal. No evidence of vegetation. Doppler: No significant regurgitation. Aorta: - There was no atheroma. There was no evidence for dissection. Aortic root: The aortic root was not dilated. Ascending aorta: The ascending aorta was normal in size. Aortic arch: The aortic arch was normal in size. Descending aorta: The descending aorta was normal in size. MITRAL VALVE: Structurally normal valve. Leaflet separation was normal. No evidence of vegetation. Doppler: Trace regurgitation. LEFT ATRIUM: The atrium was normal in size. No evidence of thrombus in the atrial cavity or appendage. No evidence of thrombus in the atrial cavity or appendage. The appendage was morphologically a left appendage, multilobulated, and of normal size. Emptying velocity was normal. ATRIAL SEPTUM: No defect or patent foramen ovale was identified. Echo contrast study showed no fsdrq-[id number] atrial level shunt, at baseline or with provocation. Echo contrast study showed no cpbjq-[id number]-gjap atrial level shunt, at baseline or with provocation. RIGHT VENTRICLE: The cavity size was normal. Wall thickness was normal. Systolic function was normal. PULMONIC VALVE: Structurally normal valve. No evidence of vegetation. TRICUSPID VALVE: Structurally normal valve. Leaflet separation was normal. No evidence of vegetation. Doppler: No significant regurgitation. PULMONARY ARTERY: The main pulmonary artery was normal-sized. RIGHT ATRIUM: The atrium was normal in size. No evidence of thrombus in the atrial cavity or appendage. The appendage was morphologically a right appendage. PERICARDIUM: There was no pericardial effusion. Prepared and signed by Adri Albrecht [id number]
== END 2016-07-16 10:07 | disposition home or self-care (01) ==
LOC: HDOC 06:56 → HDIC 06:57 → HCIN 17:25 → HCIS 07-16 09:18 → HCIN 07-16 09:22 → HDOC 07-16 10:07
PROVIDERS: ATTEND Internal Medicine Interventional Cardiology
DX: I48.91 Unspecified atrial fibrillation (principal); I47.1 Supraventricular tachycardia; I31.3 Pericardial effusion (noninflammatory); N40.0 Benign prostatic hyperplasia without lower urinary tract symptoms; E03.9 Hypothyroidism, unspecified; I10 Essential (primary) hypertension; E78.2 Mixed hyperlipidemia; M17.9 Osteoarthritis of knee, unspecified; I25.10 Atherosclerotic heart disease of native coronary artery without angina pectoris; R56.9 Unspecified convulsions; Z01.818 Encounter for other preprocedural examination
CPT/HCPCS: 80048; 85002; 85025; 85610; 85730; 86850; 86900; 86901; 93005; 93312; 93320; 93325; 93613; 93623; 93656; 93662; C1730; C1731; C1732; C1759; C1766; C2630; J1644; J1956; J2270; J2720; J3010; C1725; C1757; C1760; C1769; C1874; C1887; C1893